=== PATIENT | female | born 1960 | race Caucasian/White ===

== ENCOUNTER → 2018-03-16 | Outpatient (CLI) | payer OTHER ==
[~2018-03-16] MED LIST: FES4PT PO; MULT-820 PO; SERT-177 PO
--- NOTE | 2018-03-16 10:17 | RADIOLOGY IMAGING REPORT ---
[place] [facility] [place] NAME: FLY AHUJA : [id number] MR: [id number] V: [id number] EXAM DATE: [id number] ORDERING PHYSICIAN: CHRISTIN DYE TECHNOLOGIST: Alicia Mariee PROCEDURE:BILATERAL DIGITAL SCREENING MAMMOGRAM WITH CAD ASSISTED INTERPRETATION & 3D TOMOSYNTHESIS COMPARISON:03/03/17 & priors to 02/11/12 INDICATIONS:SCREENING FINDINGS: The breasts have scattered fibroglandular parenchymal densities. There are no mammographic findings concerning for malignancy. No significant interval change. DIAGNOSTIC CATEGORY 1--NEGATIVE. RECOMMENDATIONS: ROUTINE MAMMOGRAM AND CLINICAL EVALUATION IN 1 YEAR. IMPRESSION: BIRADS 1: Negative. Dictated by: Wes Fisher on 03/16/2018 at 9:30 Transcribed by: SHAQ on 03/16/2018 at 10:05 Approved by: Wes Fisher on 03/16/2018 at 10:16 [facility]
== END ==
LOC: MAMO 01:52
PROVIDERS: ATTEND Nurse Practitioner Family
DX: Z12.31 Encounter for screening mammogram for malignant neoplasm of breast (principal)
CPT/HCPCS: 77063; 77067